=== PATIENT | male | born 1995 | race Caucasian/White ===

== ENCOUNTER 2020-03-13 05:51 | Emergency (ER) | payer MEDICAID ==
[~2020-03-13] VITALS: Ht 188 cm; Wt 108.9 kg
[2020-03-13] MEDS ORDERED: TENORMIN25 MG PO (06:09)
[2020-03-13] MEDS ORDERED: SERTRALINE HCL100 MG PO (06:10)
[2020-03-13] MEDS ORDERED: VRAYLAR1.5 MG PO (06:11)
[2020-03-13] MEDS ORDERED: DEPAKOTE500 MG PO (06:11)
[2020-03-13] MEDS ORDERED: HYDROXYZINE HCL10 M2 PO ×2 (06:12→06:17)
[2020-03-13] MEDS ORDERED: DIFFERIN TRANSDERM (06:13)
[2020-03-13] MEDS ORDERED: APAP650 PO (06:14)
[2020-03-13] MEDS ORDERED: PEPTO-BISMOL1 TAB PO (06:15)
[2020-03-13] MEDS ORDERED: CORICIDIN HBP1 EACH PO (06:16)
[2020-03-13] MEDS ORDERED: IBU800 MG PO (06:17)
[2020-03-13] MEDS ORDERED: NIGHT COLD-FLU1 EACH PO (06:18)
[2020-03-13] MEDS ORDERED: ONDANSETRON ODT4 MG PO (06:18)
[2020-03-13] MEDS ORDERED: DESYREL150 MG PO (06:19)
[2020-03-13] MEDS ORDERED: BENGAY GREASELE57 GM TOP (06:20)
[2020-03-13] MEDS ORDERED: BENZOYL PEROXI142 GM TOP (06:20)
[2020-03-13] MEDS ORDERED: EPSOM SALT454 GM TOP (06:22)
[2020-03-13] MEDS ORDERED: TRIPLE ANTIBIOT28 G2 TOP (06:22)
[2020-03-13 06:34] LABS: ABSOLUTE BASOPHILS 0.1 thou/uL (0.0-0.2); ABSOLUTE EOSINOPHILS 0.1 thou/uL (0.0-0.7); ABSOLUTE LYMPHOCYTES 1.9 thou/uL (0.8-5.3); ABSOLUTE MONOCYTES 0.7 thou/uL (0.0-1.2); ABSOLUTE NEUTROPHILS 8.3 thou/uL (1.6-8.1); BASOPHILS 0.6 %; EOSINOPHILS 1.1 %; HEMATOCRIT 46.1 % (42.0-52.0); HEMOGLOBIN 15.6 gm/dL (14.0-18.0); LYMPHOCYTES 17.1 %; MCH 29.9 pg (26.0-34.0); MCHC 33.8 g/dL (28.0-37.0); MCV 88.4 fL (80.0-100.0); MONOCYTES 6.4 %; MPV 8.6 fl. (7.2-11.1); NUCLEATED RBCS 0 /100WBC; PLATELET COUNT* 218 thou/uL (150-400); POLYS 74.8 %; RBC 5.21 mil/uL (4.50-6.00); RDW-CV 13.5 % (10.5-14.5)
[2020-03-13 06:39] LABS: CALCIUM 9.1 mg/dL (8.5-10.1); CREATININE 0.9 mg/dL (0.6-1.3); POTASSIUM 4.2 mmol/L (3.5-5.1)
[2020-03-13 06:49] LABS: ALBUMIN 4.2 g/dL (3.4-5.0); TOTAL BILIRUBIN 0.2 mg/dL (<0.1-1.0); TOTAL PROTEIN 7.6 g/dL (6.4-8.2)
[2020-03-13] MEDS ORDERED: ZOFRAN ODT4 MG SUBLING (08:01)
[2020-03-13] MEDS ORDERED: TUMS X-STR300 MG PO (08:10)
[2020-03-13 08:16] VITALS: BP 155/98
== END 2020-03-13 08:16 | disposition home or self-care (01) ==
LOC: M.ERS 05:51
PROVIDERS: Emergency Medicine
DX: K29.70 Gastritis, unspecified, without bleeding (principal); I10 Essential (primary) hypertension; Z79.899 Other long term (current) drug therapy